=== PATIENT | male | born 1955 | race Two or more races ===

== ENCOUNTER 2023-12-03 19:53 | Emergency (ER) | payer SELFPAY ==
[2023-12-03 19:56] VITALS: BP 135/84
[2023-12-03 22:15] VITALS: BP 126/70
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
[2023-12-03] MEDS: ADACEL 0.5 ML IM (23:04)
== END 2023-12-03 22:45 | disposition home or self-care (01) ==
LOC: EMR 19:53
PROVIDERS: EMERGENCY PHYSICIAN Emergency Medicine
DX: S00.03XA Contusion of scalp, initial encounter (principal); R41.0 Disorientation, unspecified; M54.2 Cervicalgia; M54.9 Dorsalgia, unspecified; V03.00XA Pedestrian on foot injured in collision with car, pick-up truck or van in nontraffic accident, initial encounter; Y93.01 Activity, walking, marching and hiking; Y92.89 Other specified places as the place of occurrence of the external cause; Z23 Encounter for immunization; M50.30 Other cervical disc degeneration, unspecified cervical region; E78.00 Pure hypercholesterolemia, unspecified
CPT/HCPCS: 99284; 90471; 70450; 72125; 90715